=== PATIENT | male | born 1985 | race Caucasian/White ===

== ENCOUNTER → 2024-08-10 11:56 | Outpatient (CLI) | payer OTHER, SELFPAY ==
[2024-08-10 12:33] LABS: Semen Sperm Prescence Post-Vas Absent (ABSENT)
== END ==
PROVIDERS: Referring Provider Urology; Visit Provider Urology
DX: Z98.52 Vasectomy status (principal)
CPT/HCPCS: 89321

== ENCOUNTER 2024-08-21 16:17 | Emergency (ER) | payer OTHER, SELFPAY ==
[2024-08-21] VITALS (7 sets, daily range): BP systolic 123–145; BP diastolic 75–97; PULSE 72–80; RESP 17–24; TEMP 36.9; O2SAT 94–100
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
[2024-08-21] MEDS: HYDROMORPHONE 1 MG INJ IV (16:39)
[2024-08-21] MEDS: BACITRACIN OINT 0.9 GM PCKT 5 APPLIC TOP (16:40)
[2024-08-21] MEDS: ONDANSETRON 4 MG/2 ML INJ IV (16:40)
--- NOTE | 2024-08-21 17:02 | PC.NURSE ---
Pt states that pain is going away with the IV medication. Reports 05/15. Has some blurred vision after taking off moist towels from face, then vision returns to normal.
== END 2024-08-21 18:10 | disposition home or self-care (01) ==
PROVIDERS: Emergency Provider Emergency Medicine
DX: T20.16XA Burn of first degree of forehead and cheek, initial encounter (principal); T20.14XA Burn of first degree of nose (septum), initial encounter; X08.8XXA Exposure to other specified smoke, fire and flames, initial encounter
CPT/HCPCS: 36415; 96374; 96375; 99284; J1171; J2405